=== PATIENT | male | born 1980 | race Hispanic/Latino ===

== ENCOUNTER 2021-12-06 07:42 | Emergency (ER) | payer OTHER ==
[~2021-12-06] VITALS: Ht 165.1 cm; Wt 95.3 kg
[2021-12-06] MEDS ORDERED: LACTATED RINGERS 1000ML 1,000 ML IV ONE (08:30)
[2021-12-06 08:43] LABS: BASOPHILS % (AUTO) 0.6 % (0.0-5.0); EOSINOPHILS % (AUTO) 2.9 % (0.0-8.0); HEMATOCRIT 43.5 % (42-54); LYMPHOCYTES % (AUTO) 26.9 % (21.0-51.0); MEAN CORPUSCULAR HEMOGLOBIN 31.5 pg (27.0-33.0); MEAN CORPUSCULAR HGB CONC 34.9 g/dL (32.0-36.0); MEAN CORPUSCULAR VOLUME 90.1 fL (79-99); MONOCYTES % (AUTO) 10.6 % (3.0-13.0); NEUTROPHILS % (AUTO) 58.8 % (40.0-77.0); PLATELET COUNT (AUTO) 201 K/uL (130-400); RED BLOOD CELL COUNT(AUTO) 4.83 MIL/uL (4.50-6.20); WHITE BLOOD COUNT (AUTO) 6.2 K/uL (4.8-10.8)
[2021-12-06 08:57] LABS: ALBUMIN 3.3 g/dL (3.5-5.0); CREATININE 0.9 mg/dL (0.5-1.5); POTASSIUM 3.7 mmol/L (3.5-5.1); TOTAL PROTEIN, SERUM 7.4 g/dL (6.0-8.3)
[2021-12-06 09:02] LABS: APPEARANCE,URINE CLEAR (CLEAR); BILIRUBIN,URINE NEGATIVE (NEGATIVE); COLOR,URINE COLORLESS (YELLOW); GLUCOSE, URINE (UA) NEGATIVE (NEGATIVE); KETONES,URINE NEGATIVE (NEGATIVE); LEUKOCYTE ESTERASE ,URINE NEGATIVE Leu/uL (NEGATIVE); NITRATE,URINE NEGATIVE (NEGATIVE); OCCULT BLOOD,URINE NEGATIVE (NEGATIVE); PH,URINE 5.5 (5.0-8.0); PROTEIN,URINE NEGATIVE (NEGATIVE); UROBILINOGEN,URINE 0.2 mg/dL (0.2-1.0)
[2021-12-06 09:36] VITALS: BP 135/79
== END 2021-12-06 10:09 | disposition home or self-care (01) ==
LOC: EDH 07:42
DX: K76.0 Fatty (change of) liver, not elsewhere classified (principal); R74.8 Abnormal levels of other serum enzymes
CPT/HCPCS: 99284; 96360; 82150; 82550; 84484; 80053; 83690; 85025; 81003; 36415; 93005; J7120

== ENCOUNTER 2022-09-21 14:04 | Emergency (ER) | payer OTHER ==
[~2022-09-21] VITALS: Ht 162.6 cm; Wt 99.8 kg
[2022-09-21 14:46] LABS: BASOPHILS % (AUTO) 0.3 % (0.0-5.0); EOSINOPHILS % (AUTO) 1.3 % (0.0-8.0); LYMPHOCYTES % (AUTO) 20.8 % (21.0-51.0); MEAN CORPUSCULAR HEMOGLOBIN 32.9 pg (27.0-33.0); MEAN CORPUSCULAR HGB CONC 34.8 g/dL (32.0-36.0); MEAN CORPUSCULAR VOLUME 94.5 fL (79-99); MONOCYTES % (AUTO) 9.6 % (3.0-13.0); NEUTROPHILS % (AUTO) 67.7 % (40.0-77.0); PLATELET COUNT (AUTO) 194 K/uL (130-400); RED BLOOD CELL COUNT(AUTO) 4.87 MIL/uL (4.50-6.20); RED CELL DISTRIBUTION WIDTH 11.9 % (11.0-15.5); WHITE BLOOD COUNT (AUTO) 10.4 K/uL (4.8-10.8)
[2022-09-21 14:59] LABS: CREATININE 1.1 mg/dL (0.5-1.5); POTASSIUM 4.2 mmol/L (3.5-5.1)
[2022-09-21 15:03] LABS: ALBUMIN 3.1 g/dL (3.5-5.0); TOTAL PROTEIN, SERUM 8.2 g/dL (6.0-8.3)
[2022-09-21 17:37] VITALS: BP 145/70; PULSE 75; RESP 18; O2SAT 100
== END 2022-09-21 17:36 | disposition home or self-care (01) ==
LOC: EDH 14:04
DX: K80.20 Calculus of gallbladder without cholecystitis without obstruction (principal); K76.0 Fatty (change of) liver, not elsewhere classified; Z20.822 Contact with and (suspected) exposure to COVID-19
CPT/HCPCS: 99285; 76705; 71045; 87635; 84484; 80053; 83690; 85025; 87804 ×2; 36415; 93005; C9803

== ENCOUNTER 2024-02-29 05:43 | Emergency (ER) | payer SELFPAY ==
[~2024-02-29] VITALS: Ht 167.6 cm; Wt 86.2 kg
[2024-02-29] MEDS: Solu-medROL 125MG VIAL IVP ONE (06:15)
[2024-02-29] MEDS: cefTRIAXone 1G VIAL IVPB ONE (06:15)
[2024-02-29 06:19] LABS: BASOPHILS # (AUTO) 0.04 K/uL (0.00-0.20); BASOPHILS % (AUTO) 0.2 % (0.0-5.0); EOSINOPHILS # (AUTO) 0.01 K/uL (0.00-0.70); EOSINOPHILS % (AUTO) 0.1 % (0.0-8.0); HEMATOCRIT 47.5 % (42-54); IMMATURE GRANULOCYTE ABSOLUTE 0.09 K/uL (0-1); LYMPHOCYTES # (AUTO) 1.8 K/uL (1.0-4.8); MEAN CORPUSCULAR HEMOGLOBIN 31.5 pg (27.0-33.0); MEAN CORPUSCULAR HGB CONC 34.7 g/dL (32.0-36.0); MEAN CORPUSCULAR VOLUME 90.8 fL (79-99); MONOCYTES # (AUTO) 1.4 K/uL (0.1-1.0); MONOCYTES % (AUTO) 7.3 % (3.0-13.0); NEUTROPHILS # (AUTO) 16.3 K/uL (1.8-7.7); NEUTROPHILS % (AUTO) 82.9 % (40.0-77.0); PLATELET COUNT (AUTO) 158 K/uL (130-400); RED BLOOD CELL COUNT(AUTO) 5.23 MIL/uL (4.50-6.20); RED CELL DISTRIBUTION WIDTH 12.8 % (11.0-15.5); WHITE BLOOD COUNT (AUTO) 19.6 K/uL (4.8-10.8)
[2024-02-29 06:20] LABS: RAPID GROUP A STREP positive (NEGATIVE)
[2024-02-29 06:23] LABS: SARS-CoV-2, RNA, NAAT NEGATIVE SARS CoV-2 (NEGATIVE)
--- NOTE | 2024-02-29 06:23 | ERN ---
General Chief Complaint: Sore Throat Stated Complaint: EAR AND THROAT PAIN Time Seen by MD: 05:46 Source: patient History of Present Illness Initial Comments PATIENT IS A 44-YEAR-OLD MALE COMING IN TO BE EVALUATED FOR STREP SORE THROAT AND DYSPHAGIA. PATIENT STATES THE SYMPTOMS BEGAN A COUPLE OF DAYS AGO BUT GETTING WORSE. LONG WITH THE THAT PATIENT STATES HE HAS BEEN HAVING RIGHT EAR PAIN. Allergies: Coded Allergies: No Known Allergies (Unverified Allergy, Unknown, 12/06/21) Past Medical History Past Medical History: No Pertinent History Medical History Other: ULCERS Past Surgical History: None ROS Dictation CONSTITUTIONAL: NO CHILLS, NO FEVER, NO WEAKNESS, NO DIAPHORESIS, NO MALAISE. HEAD/FACE: NO SIGNS OF TRAUMA. EENT: NO EYE PAIN, NO BLURRED VISION, NO TEARING, NO DOUBLE VISION, EAR PAIN, NO EAR DISCHARGE, NO NOSE PAIN, NO NASAL CONGESTION, THROAT PAIN, THROAT SWE LLING, NO MOUTH PAIN. RESPIRATORY: NO COUGH, NO ORTHOPNEA, NO SOB, NO STRIDOR, NO WHEEZING. CARDIOVASCULAR: NO CHEST PAIN, NO EDEMA, NO PALPITATIONS, NO SYNCOPE. GASTROINTESTINAL/ABDOMINAL: NO ABDOMINAL PAIN, NO CONSTIPATION, NO DIARRHEA, NO NAUSEA, NO VOMITING. GENITOURINARY: NO ABNORMAL DISCHARGE, NO DYSURIA, NO FREQUENT URINATION, NO HEMATURIA. NO COMPLAINTS OF PAIN IN THE GENITALS. MUSCULOSKELETAL: NO BACK PAIN, NO GOUT, NO JOINT PAIN, NO JOINT SWELLING, NO MUSCLE PAIN, NO MUSCLE STIFFNESS, NO NECK PAIN. INTEGUMENTARY: NO CHANGE IN COLOR, NO CHANGE IN HAIR/NAILS, NO DRYNESS, NO LESION, NO LUMPS, NO RASH. NEUROLOGICAL/PSYCH: NO ANXIETY, NOT DEPRESSED, NO EMOTIONAL PROBLEM, NO HEADACHE, NO NUMBNESS, NO PRE-EXISTING DEFICIT, NO HISTORY OF SEIZURES, NO TREMORS, NO WEAKNESS. HEMATOLOGIC/LYMPHATIC: NOT ANEMIC, NO HISTORY OF BLOOD CLOTS, NO APPARENT BLEEDING, NO BRUISING, GLANDS NOT SWOLLEN. ALL SYSTEMS NEGATIVE, EXCEPT NOTED. Physical Exam Physical Exam Dictation VITAL SIGNS: REVIEWED. GENERAL APPEARANCE: ALERT, ORIENTED X3, NO ACUTE DISTRESS, OBESE. HEAD AND FACE: NON-TRAUMATIC. EYES: PERRL, PINK CONJUNCTIVAS, EYELID NO TRAUMA, ANTERIOR CHAMBER CLEAR. EARS: PINNAS INTACT AND NO SIGNS OF TRAUMA OR ERYTHEMA. EAR CANALS CLEAR AND NO DISCHARGE. TMS ERYTHEMA. NOSE: NO DISCHARGE, NO BLEEDING. OROPHARYNX: MOUTH NORMAL, TEETH NO CARIES, TONGUE PINK. PHARYNX CLEAR, ERYTHEMA. TONSILS EXUDATES, ABSCESSES NOTED. MUCOUS MEMBRANE MOIST. NECK: SUPPLE, NON-TENDER, NO THYROMEGALY, NO MASSES, NO JVD, NO BRUITS. BREAST: DEFERRED. CHEST: NO TENDERNESS, NO CREPITUS, NO PARADOXICAL MOVEMENT, NO RETRACTIONS. LUNGS: CLEAR, WELL-VENTILATED, SYMMETRIC, NO RALES, NO WHEEZING, NO RHONCHI, NO STRIDOR, GOOD BREATH SOUNDS BILATERALLY. HEART: REGULAR RATE, REGULAR RHYTHM, NO MURMUR, NO GALLOPS. VASCULAR: NO PERIPHERAL EDEMA. ABDOMEN: SOFT, POSITIVE BOWEL SOUNDS, NONDISTENDED, NO GUARDING, NONTENDER, NO REBOUND, NO MASSES NO HEPATOMEGALY, NO SPLENOMEGALY, NO BATRES'S SIGN, NO HERNIAS. RECTAL: DEFERRED. GENITAL: DEFERRED. NEUROLOGICAL: NORMAL SPEECH, GROSS MOTOR FUNCTION INTACT, GROSS SENSORY FUNCTION INTACT. MUSCULOSKELETAL: NECK NONTENDER, FULL RANGE OF MOTION, BACK NONTENDER, FULL RANGE OF MOTION. EXTREMITIES: NONTENDER, FULL RANGE OF MOTION. SKIN: COLOR PINK, DRY, NO TURGOR, NO RASH, NO LACERATIONS, NO ABRASIONS, NO CONTUSIONS. LYMPHATICS: DEFERRED. Results Laboratory and Microbiology Lab and Micro Result Laboratory Tests Test 02/29/24 05:56 02/29/24 06:11 Influenza Type A Antigen Negative For Type A Influenza Type B Antigen Negative For Type B SARS-CoV-2, RNA, NAAT NEGATIVE SARS CoV-2 Group A Streptococcus Rapid positive (NEGATIVE) *A White Blood Count 19.6 K/uL (4.8-10.8) H Red Blood Count 5.23 MIL/uL (4.50-6.20) Hemoglobin 16.5 g/dL (14.0-18.0) Hematocrit 47.5 % (42-54) Mean Corpuscular Volume 90.8 fL (79-99) Mean Corpuscular Hemoglobin 31.5 pg (27.0-33.0) Mean Corpuscular Hemoglobin Concent 34.7 g/dL (32.0-36.0) Red Cell Distribution Width 12.8 % (11.0-15.5) Platelet Count 158 K/uL (130-400) Mean Platelet Volume 11.9 fL (7.5-10.5) H Immature Granulocyte % (Auto) 0.5 % (0-1) Neutrophils (%) (Auto) 82.9 % (40.0-77.0) H Lymphocytes (%) (Auto) 9.0 % (21.0-51.0) L Monocytes (%) (Auto) 7.3 % (3.0-13.0) Eosinophils (%) (Auto) 0.1 % (0.0-8.0) Basophils (%) (Auto) 0.2 % (0.0-5.0) Neutrophils # (Auto) 16.3 K/uL (1.8-7.7) H Lymphocytes # (Auto) 1.8 K/uL (1.0-4.8) Monocytes # (Auto) 1.4 K/uL (0.1-1.0) H Eosinophils # (Auto) 0.01 K/uL (0.00-0.70) Basophils # (Auto) 0.04 K/uL (0.00-0.20) Absolute Immature Granulocyte (auto 0.09 K/uL (0-1) Nucleated Red Blood Cells 0.0 % (0.0-0.19) White Cell Morphology Comment See comments Sodium Level 137 mmol/L (136-145) Potassium Level 3.6 mmol/L (3.5-5.1) Chloride Level 102 mmol/L (101-111) Carbon Dioxide Level 25 mmol/L (21-32) Blood Urea Nitrogen 7 mg/dL (7-18) Creatinine 0.9 mg/dL (0.5-1.3) Glomerular Filtration Rate Calc 107 mL/min (>90) Random Glucose 156 mg/dL (70-105) H Total Calcium 9.2 mg/dL (8.5-10.1) MDM CC: sore throat, dysphagia Comorbidities: ulcers Limitations By social determinants of health: None. Differential diagnosis: Strep pharyngitis, abscess, peritonsillar abscess, pharyngeal abscess, sepsis Vital signs: Febrile 100.2. Hypertensive. Otherwise vital signs stable. Improved in the ER. Labs ( independently ordered and interpreted by me ): CBC shows leukocytosis 19.6k. Left shift. No bands. metabolic panel: Stable. Strep swab positive for group a strep. CT soft tissue neck (independently interpreted by me ): No obvious abscess. CT read by Radiology reviewed by me: Tonsillitis, with lymphedema. No obvious abscess. Patient received 1 g of Rocephin, 125 mg of IV methylprednisolone here in the ER. Patient was strep throat. No obvious abscess. He is p.o. tolerant. Nontoxic. We will DC with Augmentin, Medrol Dosepak and OTC pain control. REASON: DYSPHAGIA ORDERING PHYSICIAN: REECE HOLLINGSWORTH MD PROCEDURE: NKSOFTI WO - CT NECK SOFT TISS W/O CONTRAST CT NECK WITH CONTRAST INDICATION: Dysphagia TECHNIQUE: 3D helical CT acquisition images were obtained from the level of the skull base to the thoracic inlet without contrast. Coronal and sagittal reformats provided. CT was performed with one or more of the following dose reduction techniques: Automated exposure control, adjustment of the mA and/or kV according to patient size, or use of iterative reconstruction technique. COMPARISON: None FINDINGS: Markedly enlarged right palatine tonsil and normal left palatine tonsil. Heterogeneous attenuation within the right palatine tonsil. The visualized portions of the brain, skull base, orbits, and paranasal sinuses appear normal. The visualized nasopharynx and nasal cavity appear otherwise normal. The oral cavity, oropharynx, and hypopharynx appear normal. Epiglottis appears normal. The cervical esophagus and visualized portion of the thoracic esophagus appear normal. The larynx and visualized trachea appear normal. The parotid and submandibular glands appear normal. The thyroid gland appears normal. Slightly enlarged reactive superior right neck lymph nodes. The visualized osseous structures appear normal. The upper mediastinum and lung apices appear normal. IMPRESSION: Findings suggesting suppurative right palatine tonsillitis and reactive superior right neck lymphadenopathy, without discrete organized/drainable abscess. ED Course Orders Procedure Category Date Status Time Cbc With Differential LAB 02/29/24 Complete 05:51 Basic Metabolic Panel LAB 02/29/24 Complete 05:51 Rapid (Group A Strep) LAB 02/29/24 Complete 05:51 Influenza Type A & B, LAB 02/29/24 Complete Rapid 05:51 Covid Rna Naat LAB 02/29/24 Complete 05:51 Ceftriaxone 1g Vial PHA 02/29/24 Complete (Rocephine 1g Inj) 06:00 Methylprednisolone PHA 02/29/24 Complete Succ 125mg (Solu-Medr 06:00 Ct Neck Soft Tiss W/O CT 02/29/24 Resulted Contrast 06:12 Current Medications Medications (Trade) Dose Ordered Sig/Curtis Route PRN Reason Start Time Stop Time Status Last Admin Dose Admin Ceftriaxone Sodium (ROCEphine 1G INJ) 1 gm ONCE ONCE IVPB 02/29/24 06:00 02/29/24 06:01 DC 02/29/24 06:15 Methylprednisolone Sodium Succinate (Solu-medROL 125MG) 125 mg ONCE ONCE IVP 02/29/24 06:00 02/29/24 06:01 DC 02/29/24 06:15 Vital Signs Date Time Temp Pulse Resp B/P (MAP) Pulse Ox O2 Delivery O2 Flow Rate FiO2 02/29/24 06:39 100.2 90 18 180/100 99 Room Air* 0 21 02/29/24 05:51 99.7 98 18 193/106 98 Room Air 0 DX & DISP Disposition: Discharge Departure Impression: Primary Impression: Strep throat Condition: Stable Scripts Methylprednisolone (Medrol) 4 Mg Tab.ds.pk 1 TAB PO AD for 6 Days, #21 TAB 0 Refills 6 on day 1 then reduce by one tablet daily until gone Prov: LULÚ MCKINNEY DO 02/29/24 Amoxicillin/Potassium Clav (Amox Tr-K Clv 875-125 mg Tab) 875 Mg-125 Mg Tablet 1 TAB PO BID for 10 Days, #20 TAB 0 Refills Prov: LULÚ MCKINNEY DO 02/29/24 Additional Instructions: You tested positive for strep throat. This is a bacterial infection that requires antibiotics. Your lab work shows an elevated white blood cell count consistent with infection. Otherwise your labs (CBC, BMP, flu, COVID) are normal. The CT scan of your neck shows strep throat. There are no abscesses or other abnormalities. You received IV antibiotics and steroids here in the ER. I have prescribed amoxicillin/clavulanic acid. This is an antibiotic. Take the entire course of antibiotics as prescribed. I have prescribed a Medrol Dosepak. This is an anti-inflammatory steroid. Please take as prescribed. Complete the entire course of medication. Stay hydrated. Drink plenty of water, clear broth, or electrolyte drinks. Avoid acidic or carbonated beverages which can irritate your throat. Alternate 800 mg of ibuprofen and 1000 mg of Tylenol every 4 hours to manage pain and fever. These medications are [id number]. You can soothe your throat with warm salt-water gargles as needed. You can use throat lozenges. Drink warm teas with honey and lemon. Consider using a humidifier or taking frequent showers to keep your throat moist and reduce throat irritation. Eat soft, bland foods such as soups, yogurt, or applesauce. Avoid spicy, crunchy, or acidic foods. Please follow up with your primary doctor next week for re-evaluation. Return to the emergency department if you develop any difficulty breathing, persistent high fevers, swelling of your neck or neck stiffness, or any signs of dehydration. Referrals: SELF,REFERRAL (PCP) REECE HOLLINGSWORTH MD Feb 29, 2024 06:23 LULÚ MCKINNEY DO Feb 29, 2024 09:05
[2024-02-29 06:26] LABS: INFLUENZA TYPE A Negative For Type A (NEGATIVE); INFLUENZA TYPE B Negative For Type B (NEGATIVE)
[2024-02-29 06:30] LABS: CREATININE 0.9 mg/dL (0.5-1.3); POTASSIUM 3.6 mmol/L (3.5-5.1)
--- NOTE | 2024-02-29 08:16 | HMCIMG ---
CT NECK WITH CONTRAST INDICATION: Dysphagia TECHNIQUE: 3D helical CT acquisition images were obtained from the level of the skull base to the thoracic inlet without contrast. Coronal and sagittal reformats provided. CT was performed with one or more of the following dose reduction techniques: Automated exposure control, adjustment of the mA and/or kV according to patient size, or use of iterative reconstruction technique. COMPARISON: None FINDINGS: Markedly enlarged right palatine tonsil and normal left palatine tonsil. Heterogeneous attenuation within the right palatine tonsil. The visualized portions of the brain, skull base, orbits, and paranasal sinuses appear normal. The visualized nasopharynx and nasal cavity appear otherwise normal. The oral cavity, oropharynx, and hypopharynx appear normal. Epiglottis appears normal. The cervical esophagus and visualized portion of the thoracic esophagus appear normal. The larynx and visualized trachea appear normal. The parotid and submandibular glands appear normal. The thyroid gland appears normal. Slightly enlarged reactive superior right neck lymph nodes. The visualized osseous structures appear normal. The upper mediastinum and lung apices appear normal. IMPRESSION: Findings suggesting suppurative right palatine tonsillitis and reactive superior right neck lymphadenopathy, without discrete organized/drainable abscess.
[2024-02-29] MEDS ORDERED: METH4TAB3 PO (09:01)
[2024-02-29] MEDS ORDERED: AMOX1TAB16 PO (09:01)
[2024-02-29 09:41] VITALS: BP 122/82; PULSE 87; RESP 18; TEMP 99.4; O2SAT 97
== END 2024-02-29 09:47 | disposition home or self-care (01) ==
LOC: EDH 05:43
DX: J02.0 Streptococcal pharyngitis (principal); Z20.822 Contact with and (suspected) exposure to COVID-19
CPT/HCPCS: 99285; 96365; 70490; 87635; 96375; 80048; 85025; 87880; 87804 ×2; 36415; J2919; J0696